=== PATIENT | female | born 1990 | race Caucasian/White ===

== ENCOUNTER 2019-01-03 13:52 | Emergency (ER) | payer OTHER ==
[2019-01-03 14:05] VITALS: BP 137/80; PULSE 107; TEMP 98.2
--- NOTE | 2019-01-03 14:08 | PDOC ---
Rapid Medical Evaluation Chief Complaint: Vaginal Sxs Time Seen by Provider: 01/03/19 14:02 Medical Evaluation: Allergies Allergy/AdvReac Type Severity Reaction Status Date / Time No Known Allergies Allergy Verified 01/03/19 13:58 01/03/19 14:05 The patent presents with a chief complaint of: 4-6 weeks preg with spotting this am and Midsuprapubic cramping, no sand mixer f/u I have performed a brief in-person evaluation of this patient Pertinent physical exam Findings: 107 hr, otherwise no abd tenderness I have ordered the following: labs, urine, u/s The patient will proceed to the ED for further evaluation Discharge Disposition - Diagnosis Threatened miscarriage - Referrals - Patient Instructions - Post Discharge Activity
[2019-01-03 14:46] LABS: BASO % 0.6 % (0-2.0); EOS % 0.8 % (0-4.5); HEMATOCRIT 40.6 % (32.4-45.2); HEMOGLOBIN 13.4 GM/dL (10.7-15.3); LYMPH % 10.7 % (8-40); MCH 30.2 pg (25.7-33.7); MEAN CELL VOLUME 91.4 fl (80-96); MEAN PLT VOLUME 8.7 fl (7.5-11.1); NEUT % 81.9 % (42.8-82.8); PLATELET COUNT 234 K/MM3 (134-434); RBC 4.44 M/mm3 (3.60-5.2); WHITE BLOOD COUNT 12.7 K/mm3 (4.0-10.0)
[2019-01-03 15:07] LABS: EPI CELLS 1.5 /HPF (0-5/HPF); PH,URINE 6.5 (5.0-8.0); URINE APPEARANCE CLEAR; URINE BACTERIA 12.2 /hpf (NEGATIVE); URINE BILIRUBIN NEGATIVE (NEGATIVE); URINE CASTS 1 /lpf (0-8); URINE COLOR YELLOW; URINE GLUCOSE (UA) NEGATIVE (NEGATIVE); URINE KETONE NEGATIVE (NEGATIVE); URINE LEUK ESTERASE TRACE (NEGATIVE); URINE NITRITE NEGATIVE (NEGATIVE); URINE PROTEIN NEGATIVE (NEGATIVE); URINE RBC 9 /hpf (0-4); URINE UROBILINOGEN 0.2 mg/dL (0.2-1.0); URINE WBC 2 /hpf (0-5)
[2019-01-03 15:18] LABS: ALBUMIN 4.1 g/dl (3.4-5.0); ALK PHOS 53 U/L (45-117); ANION GAP 7 MMOL/L (8-16); BILIRUBIN,TOTAL 0.5 mg/dL (0.2-1); BLOOD UREA NITROGEN 8 mg/dL (7-18); CALCIUM 9.1 mg/dL (8.5-10.1); CHLORIDE 107 mmol/L (98-107); CO2 26 mmol/L (21-32); CREATININE 0.6 mg/dL (0.55-1.3); GLUCOSE,RANDOM 97 mg/dL (74-106); POTASSIUM 3.6 mmol/L (3.5-5.1); SGOT/AST 15 U/L (15-37); SGPT/ALT 18 U/L (13-61); SODIUM 141 mmol/L (136-145); TOT PROT 7.5 g/dl (6.4-8.2)
--- NOTE | 2019-01-03 17:25 | PDOC ---
History of Present Illness - General Chief Complaint: Vaginal Sxs Stated Complaint: 6WKS/ BLEEDING Time Seen by Provider: 01/03/19 14:02 Past History - Past Medical History Allergies/Adverse Reactions: Allergies Allergy/AdvReac Type Severity Reaction Status Date / Time No Known Allergies Allergy Verified 01/03/19 13:58 COPD: No - Immunization History Immunization Up to Date: Yes - Suicide/Smoking/Psychosocial Hx Smoking History: Never smoked Hx Alcohol Use: No Drug/Substance Use Hx: No *Physical Exam - Vital Signs Last Vital Signs Temp Pulse Resp BP Pulse Ox 98.2 F 107 H 17 137/80 100 01/03/19 13:59 01/03/19 13:59 01/03/19 13:59 01/03/19 13:59 01/03/19 13:59 ED Treatment Course - LABORATORY CBC & Chemistry Diagram: 01/03/19 14:25 01/03/19 14:25 - ADDITIONAL ORDERS Additional order review: Laboratory Results 01/03/19 01/03/19 01/03/19 14:31 14:25 14:25 Sodium 141 Potassium 3.6 Chloride 107 Carbon Dioxide 26 Anion Gap 7 L BUN 8 Creatinine 0.6 Creat Clearance w eGFR 119.92 Random Glucose 97 Calcium 9.1 Total Bilirubin 0.5 AST 15 ALT 18 Alkaline Phosphatase 53 Total Protein 7.5 Albumin 4.1 Beta HCG, Quant 1447.3 Urine Color Yellow Urine Appearance Clear Urine pH 6.5 Ur Specific [place] 1.010 Urine Protein Negative Urine Glucose (UA) Negative Urine Ketones Negative Urine Blood 3+ H Urine Nitrite Negative Urine Bilirubin Negative Urine Urobilinogen 0.2 Ur Leukocyte Esterase Trace Urine WBC (Auto) 2 Urine RBC (Auto) 9 Urine Casts (Auto) 1 U Epithel Cells (Auto) 1.5 Urine Bacteria (Auto) 12.2 Blood Type A POSITIVE Antibody Screen Negative 01/03/19 14:25 RBC 4.44 MCV 91.4 MCHC 33.0 RDW 13.0 MPV 8.7 Neutrophils % 81.9 Lymphocytes % 10.7 Monocytes % 6.0 Eosinophils % 0.8 Basophils % 0.6 *DC/Admit/Observation/Transfer Diagnosis at time of Disposition: Threatened miscarriage - Discharge Dispostion Disposition: HOME Condition at time of disposition: Stable Decision to Admit order: No - Referrals Referrals: Eliceo Diallo MD [Staff Physician] - - Patient Instructions Printed Discharge Instructions: DI for Threatened Additional Instructions: Your ultrasound today showed a in the uterus You also have vaginal bleeding. This may represent a miscarriage. Please follow up with the [facility] this week. A referral has been provided to you You may have Tylenol 650mg every 4 hours as needed for pain Continue your vitamins Return to the ER for worsening bleeding (more than one pad an hour), fever, weakness, abdominal pain, or if you have any changes in you symptoms Department of [facility] No reviews [facility] [place], [place] This is the location and phone number to apply for Medicaid - Post Discharge Activity Forms/Work/School Notes: Back to Work
[2019-01-03] MEDS ORDERED: ACETAMINOPHEN 325 MG TABLET (FP) PO ONE (17:42)
== END 2019-01-03 18:00 | disposition home or self-care (01) ==
LOC: JER 13:52
DX: O26.891 Other specified pregnancy related conditions, first trimester (principal); O20.0 Threatened abortion; Z3A.01 Less than 8 weeks gestation of pregnancy
CPT/HCPCS: 36415; 76817-TC; 80053; 81003; 84702; 85025; 86850; 86900; 86901; 87086; 99282-25

== ENCOUNTER 2022-01-17 07:45 | Inpatient (IN) | payer BC ==
[2022-01-17] MEDS ORDERED: BUTORPHANOL TARTRATE 1 MG/ML VIAL IVPB ONE (09:03)
[2022-01-17] MEDS ORDERED: DINOPROSTONE 10 MG VAGINAL SUPPOSITORY VG ONE (09:03)
[2022-01-17] MEDS ORDERED: PROMETHAZINE HCL 25 MG/1 ML VIAL IVPUSH ONE (09:03)
[2022-01-17 09:11] VITALS: BMI 23.5
[2022-01-17] MEDS: ELECTROLYTE-148 SOLN 1,000 ML IV SCH (13:15)
[2022-01-17] MEDS ORDERED: morphine SULFATE/PF 1 MG/2 ML (2cc Syringe - QUVA) ONE (16:39)
[2022-01-17] MEDS ORDERED: KETOROLAC TROMETHAMINE 30 MG/1 ML VIAL ONE (16:40)
[2022-01-17] MEDS ORDERED: DEXAMETHASONE SOD PHOSPHATE 4 MG/1 ML VIAL ONE (16:40)
[2022-01-17] MEDS ORDERED: OXYTOCIN 10 UNITS/ML VIAL ONE (16:40)
[2022-01-17] MEDS ORDERED: ONDANSETRON 4 MG/2 ML VIAL ONE (16:40)
[2022-01-17] MEDS ORDERED: ceFAZolin SODIUM 1 GM VIAL ONE (16:40)
[2022-01-17] MEDS ORDERED: morphine SULFATE/PF 1 MG/2 ML (2cc Syringe - QUVA) IT ONE (16:59)
[2022-01-17] MEDS ORDERED: ONDANSETRON 4 MG/2 ML VIAL IVPUSH PRN (18:26)
[2022-01-17] MEDS ORDERED: ACETAMINOPHEN 1000 MG/100 ML BAG IVPB ONE (18:28)
[2022-01-17] MEDS ORDERED: MEPERIDINE HCL 25 MG/ML VIAL IVPUSH ONE (18:28)
[2022-01-17] MEDS ORDERED: CITRIC ACID/SODIUM CITRATE 30 ML UNIT-DOSE CUP PO ONE (18:35)
[2022-01-17] MEDS ORDERED: METHYLERGONOVINE MALEATE 0.2 MG/1 ML AMP IM PRN (18:50)
[2022-01-17 19:02] LABS: CORD BASE EXCESS -3.3 mmol/L (0-2); CORD HCO3 22.8 mmHg (20-29); CORD PCO2 44.8 mmHg (30-78); CORD pH 7.325 (7.14-7.44)
[2022-01-17 19:05] LABS: CORD BASE EXCESS -2.7 mmol/L (0-2); CORD HCO3 23.9 mmHg (20-29); CORD PCO2 48.2 mmHg (30-78); CORD pH 7.314 (7.14-7.44)
[2022-01-17] MEDS ORDERED: OXYTOCIN 20 UNITS in 0.9% NS 20 UNIT/1,000 ML INFUS.BAG IV ONE (20:09)
[2022-01-17] MEDS: OXYTOCIN 20 UNITS in 0.9% NS 20 UNIT/1,000 ML INFUS.BAG IV SCH (20:17)
[2022-01-17] MEDS: IBUPROFEN 800 MG/8 ML IJ IVPB PRN (22:00)
[2022-01-18] MEDS ORDERED: ceFAZolin SODIUM 1 GM VIAL ONE ×3 (01:07→17:24)
[2022-01-18] MEDS ORDERED: DEXTROSE 5%-WATER - 50 ML IVPB ONE ×3 (01:07→17:24)
[2022-01-18] MEDS: CEFAZOLIN 1 GM in DEXTROSE 5%-WATER - 50 ML IVPB SCH ×3 (01:10→17:29)
[2022-01-18] MEDS ORDERED: oxyCODONE HCL 5 MG TABLET PO PRN (06:50)
[2022-01-18] MEDS: IBUPROFEN 800 MG/8 ML IJ IVPB PRN (06:55)
[2022-01-18 09:34] LABS: BASO % 0.4 % (0-2.0); EOS % 0.5 % (0-4.5); HEMATOCRIT 30.9 % (32.4-45.2); HEMOGLOBIN 10.4 GM/dL (10.7-15.3); LYMPH % 12.3 % (8-40); MCHC 33.7 g/dl (32.0-36.0); MEAN PLT VOLUME 10.1 fl (7.5-11.1); MONO % 6.4 % (3.8-10.2); NEUT % 80.4 % (42.8-82.8); PLATELET COUNT 147 10^3/uL (134-434); RBC 3.36 M/mm3 (3.60-5.2); RDW 13.3 % (11.6-15.6); WHITE BLOOD COUNT 11.7 K/mm3 (4.0-10.0)
[2022-01-18] MEDS: SIMETHICONE 80 MG TAB.CHEW (FP) PO PRN ×3 (11:31→21:08)
[2022-01-18] MEDS: ACETAMINOPHEN 325 MG TABLET (FP) PO PRN (11:31)
[2022-01-18] MEDS: IBUPROFEN 600 MG TABLET (FP) PO PRN ×2 (16:21→21:07)
[2022-01-18] MEDS ORDERED: BISACODYL 10 MG SUPP.RECT RC PRN (18:50)
[2022-01-18] MEDS: ELECTROLYTE-148 SOLN 1,000 ML IV SCH (20:50)
[2022-01-18] MEDS: OXYTOCIN 20 UNITS in 0.9% NS 20 UNIT/1,000 ML INFUS.BAG IV SCH (20:50)
[2022-01-18] MEDS: oxyCODONE HCL 5 MG TABLET PO PRN (22:30)
[2022-01-19] MEDS: SIMETHICONE 80 MG TAB.CHEW (FP) PO PRN ×3 (07:42→18:29)
[2022-01-19] MEDS: oxyCODONE HCL 5 MG TABLET PO PRN (07:42)
[2022-01-19] MEDS: IBUPROFEN 600 MG TABLET (FP) PO PRN ×3 (09:46→20:32)
[2022-01-19] MEDS: ACETAMINOPHEN 325 MG TABLET (FP) PO PRN ×2 (12:46→18:29)
[2022-01-20] MEDS: IBUPROFEN 600 MG TABLET (FP) PO PRN ×6 (00:30→23:35)
[2022-01-20] MEDS: SIMETHICONE 80 MG TAB.CHEW (FP) PO PRN ×3 (00:31→19:15)
[2022-01-20 08:33] LABS: BASO % 0.4 % (0-2.0); EOS % 2.3 % (0-4.5); HEMATOCRIT 29.8 % (32.4-45.2); HEMOGLOBIN 10.1 GM/dL (10.7-15.3); LYMPH % 13.4 % (8-40); MCHC 33.8 g/dl (32.0-36.0); MEAN CELL VOLUME 91.6 fl (80-96); MEAN PLT VOLUME 9.2 fl (7.5-11.1); NEUT % 77.9 % (42.8-82.8); PLATELET COUNT 165 10^3/uL (134-434); RBC 3.26 M/mm3 (3.60-5.2); RDW 13.2 % (11.6-15.6); WHITE BLOOD COUNT 12.3 K/mm3 (4.0-10.0)
[2022-01-20] MEDS: ACETAMINOPHEN 325 MG TABLET (FP) PO PRN (13:13)
[2022-01-21] MEDS: IBUPROFEN 600 MG TABLET (FP) PO PRN ×2 (06:04→11:00)
[2022-01-21 12:22] VITALS: BP 116/75; PULSE 105; TEMP 97.6
== END 2022-01-21 12:50 | disposition home or self-care (01) | DRG 788 ==
LOC: JLDR 07:45 → J3W 20:51
PROVIDERS: ADMIT Obstetrics & Gynecology; ATTEND Obstetrics & Gynecology
PROC: 10D00Z1 Extraction of Products of Conception, Low, Open Approach (ICD-10-PCS; principal; 2022-01-17)
PROC: 3E0P7VZ Introduction of Hormone into Female Reproductive, Via Natural or Artificial Opening (ICD-10-PCS; 2022-01-17)
DX: O36.5930 Maternal care for other known or suspected poor fetal growth, third trimester, not applicable or unspecified (principal); O76 Abnormality in fetal heart rate and rhythm complicating labor and delivery; O61.0 Failed medical induction of labor; O69.81X0 Labor and delivery complicated by cord around neck, without compression, not applicable or unspecified; Z3A.37 37 weeks gestation of pregnancy; Z37.0 Single live birth
CPT/HCPCS: 36415; 36600; 82803; 85025; 88307-TC